=== PATIENT | female | born 1980 | race Caucasian/White ===

== ENCOUNTER → 2024-11-03 09:15 | Outpatient (BNV) | payer MEDICARE, SELFPAY | PROVIDERS: Visit Provider Psychiatry & Neurology Psychiatry | DX: F33.2 Major depressive disorder, recurrent severe without psychotic features (principal); F41.1 Generalized anxiety disorder; F43.10 Post-traumatic stress disorder, unspecified; F10.91 Alcohol use, unspecified, in remission | CPT/HCPCS: 90792 ==

== ENCOUNTER 2024-11-07 09:13 | Outpatient (REF) | payer MEDICARE, MEDICAID, SELFPAY ==
[2024-11-07 09:49] LABS: MANUAL DIFF FLAG NO
[2024-11-07 10:19] LABS: Basophils Absolute Auto 0.1 X10*3/uL (0.0-0.2); Basophils Percent Auto 0.8 % (0-2); Eosinophils Absolute Auto 0.1 X10*3/uL (0.0-0.4); Eosinophils Percent Auto 1.1 % (0-4); Hematocrit 33.1 % (37.0-47.0); Hemoglobin 10.3 g/dl (12.0-16.0); Imm Gran Abs Auto 0.04 X10*3/uL (0.00-0.03); Imm Gran Pct Auto 0.5 % (0.0-0.4); Lymphocytes Absolute Auto 1.8 X10*3/uL (1.2-4.9); Lymphocytes Percent Auto 23.4 % (20-40); Mean Corpuscular HGB Conc 31.1 g/dl (31.0-35.0); Mean Corpuscular Hemoglobin 22.8 pg (27.0-33.0); Mean Corpuscular Volume 73.4 fL (80.0-98.0); Mean Platelet Volume 9.7 fL (9.4-12.3); Monocytes Absolute Auto 0.6 X10*3/uL (0.1-1.2); Monocytes Percent Auto 7.6 % (2-11); Neutrophils Absolute Auto 5.1 x10*3/uL (2.0-8.3); Neutrophils Percent Auto 66.6 % (45-73); Platelet Count 317 X10*3/uL (160-400); Red Blood Count 4.51 X10*6/uL (4.20-5.50); Red Cell Distribution Width 14.8 % (11.0-16.0); White Blood Count 7.6 X10*3/uL (4.8-10.8)
[2024-11-07 10:24] LABS: Estimated Average Glucose 111 mg/dL; Hemoglobin A1c % 5.5 % (<6.0)
[2024-11-07 11:08] LABS: HBS Num1 0.91 mIU/mL (0-7.99); HBsAGNum1 0.28 S/CO (0.00-0.99); HIV AB/AG Nonreactive (Nonreactive); HIV Num 1 0.07 S/CO (0.00-0.99); Hepatitis B Core Antibody Nonreactive (Nonreactive); Hepatitis B Surface Antigen Negative (Negative); Syphilis Screen Nonreactive (Nonreactive); ~HepC Num1 0.17 S/CO (0.00-0.79); ~Hepatitis B Surface Antibody NONREACTIVE (Nonreactive); ~Hepatitis C Antibody Nonreactive (Nonreactive)
[2024-11-07 11:15] LABS: Folate 12.4 ng/mL (> or = 4.0); Vitamin B12 427 pg/mL (200-900)
[2024-11-07 12:01] LABS: UPreg QC Valid YES; Urine Pregnancy NEGATIVE (NEGATIVE)
[2024-11-07 12:07] LABS: Appearance Urine Clear; Color Urine Yellow; Glucose Urine UA Negative (Negative); Leukocyte Esterase Urine Negative (Negative); Nitrite Urine Negative (Negative); PH 5.5 (5.0-9.0); Specific Gravity - Urine 1.025 (1.005-1.025); Urine Blood Negative (Negative); Urine Ketones Trace mg/dL (Negative); Urine Protein Negative (Neg-Trace)
[2024-11-07 12:12] LABS: Alanine Aminotransferase 20 U/L (0-31); Alkaline Phosphatase 88 U/L (39-117); Anion Gap 12 (12-20); Aspartate Amino Transferase 19 U/L (5-31); Bilirubin Total 0.3 mg/dL (0.0-1.0); Blood Urea Nitrogen 14 mg/dL (9-16); C Reactive Protein 0.62 mg/dL (< or = 0.50); Calcium 9.2 mg/dL (8.4-10.2); Carbon Dioxide 25 mmol/L (22-29); Chloride 108 mmol/L (96-108); Cholesterol 127 mg/dL (<200); Estimated Glomerular Filt Rate > 60; Glucose Fasting 93 mg/dL (60-99); HDL Cholesterol 47 mg/dL (>40); Iron 17 mcg/dL (30-160); LDL Cholesterol Calculated 69 mg/dL (<100); Magnesium 1.8 mg/dL (1.6-2.6); Percent Iron Saturation 5 % (15-50); Phosphorus 3.6 mg/dL (2.7-4.5); Potassium 4.7 mmol/L (3.3-5.1); Sodium 140 mmol/L (135-145); Total Iron Binding Capacity 363 mcg/dL (228-428); Total Protein 7.1 g/dL (6.5-8.0); Triglycerides 57 mg/dL (<150); Unsaturated Iron Binding 346 ug/dL
[2024-11-07 12:21] LABS: Ferritin 3 ng/mL (10-250); Free T4 (Free Thyroxine) 1.75 ng/dL (0.71-1.85); Thyroid Stimulating Hormone 0.01 uIU/mL (0.32-4.0); Vitamin D 25-OH Total 31.3 ng/mL (>30)
[2024-11-07 12:37] LABS: Gamma Glutamyl Transpeptidase 14 U/L (7-33)
[2024-11-08 17:32] LABS: Homocysteine 9.9 umol/L (<10.4)
[2024-11-10 13:29] LABS: Methylmalonic Acid 122 nmol/L (55-335)
[2024-11-14 05:49] LABS: Vitamin B1 8 nmol/L (8-30)
== END 2024-11-07 09:14 | disposition home or self-care (01) ==
LOC: HO.LAB 09:13
PROVIDERS: Absent Provider Psychiatry & Neurology Psychiatry
DX: F39 Unspecified mood [affective] disorder (principal); F10.10 Alcohol abuse, uncomplicated; Z13.1 Encounter for screening for diabetes mellitus; Z13.6 Encounter for screening for cardiovascular disorders
CPT/HCPCS: 36415; 80053; 80061; 81003; 81025; 82306; 82607; 82728; 82746; 82977; 83036; 83090; 83540; 83735; 83921; 83970; 84100; 84425; 84439; 84443; 85025; 86140; 86704; 86706; 86780; 86803; 87340; 87389

== ENCOUNTER 2024-11-17 10:15 | Outpatient (RCR) | payer MEDICARE, SELFPAY ==
[2024-11-03 10:11] VITALS: BMI 30.3
[2024-11-03 10:13] VITALS: BP 114/68; PULSE 64; TEMP 36.8
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
--- NOTE | 2024-11-03 15:30 | HO.PHP ---
Pt's case has been opened and reviewed in team.
--- NOTE | 2024-11-03 16:21 | PC.ADMIT ---
Patient is a 43 year old single female who was referred to [facility] by Talita Echavarria secondary to depression and anxiety. Patient has a history of heavy alcohol use and at her worst point she was drinking daily throughout the day. She reports history of alcohol induced pancreatitis. She reports sobriety from alcohol since June 2023 and is on MAT with Naltrexone which she receives from Talita Ecahvarria. Patient reports she would like to cut down her use of Marijuana as she is using 25 mg marijuana gummy three days a week. Patient reports that DCF took her daughter recently. Patient stated, They (DCF) took my 15 year old daughter 3 weeks ago she was getting sick and not going to school . 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 Patient reports she has to go to court this Thursday11/04/24 thus will not be attending PHP that day. Patient reports having 6 children all of whom are not in her custody. She stated she sees them once a week and misses them daily. She hopes to get her children back living with her. Patient reports she sometimes stays at her ex's house [place] and her Aunts home. She also reports that they are all supportive along with the inclusion of her best friend Leigh. Patient is alert and oriented x4. She is calm and cooperative. She presented with anxious mood and affect. She denied SI, no HI. She was given a copy of her safety plan if needed. Medications reconciled with patient and patient's pharmacy.
[2024-11-04 14:17] LABS: Amphetamine Screen Urine POSITIVE (Not Detect); Barbiturates, Urine Not Detected (Not Detect); Benzodiazepines Screen Urine Not Detected (Not Detect); Buprenorphine Scr Not Detected (Not Detect); Cannabinoid Screen Urine POSITIVE (Not Detect); Cocaine Screen Urine Not Detected (Not Detect); Fentanyl, urine Not Detected (Not Detect); Methadone Screen, Urine Not Detected (Not Detect); Opiate Screen Urine Not Detected (Not Detect); Oxycodone Screen Urine Not Detected (Not Detect); Phencyclidine Screen Urine Not Detected (Not Detect)
--- NOTE | 2024-11-10 12:24 | PC.NURSE ---
Reviewed lab results with Dr. Delgado including Iron 17, saturation 5, Ferritin 3, CRP 0.62, TSH 0.01, HGB 10.3, HCT 33.1, MCV 73.4, MCH 22.8, IMGRAN 0.5, IMGRAN ABS 0.04. No new orders.
--- NOTE | 2024-11-11 11:07 | HO.PHP ---
This ticket writer met with Marina after group 1 in which she was doing much advice given and you should vs. I statements. This ticket writer explained there are ways she can describe experiences for herself without suggesting what others should do going forward. This appeared receptive. Marina shared that now she knows her daughter is in good hands, she is feeling good and has a lot of motivation. She relayed she wants to be a trauma therapist in the future. This ticket writer brought up how her goal in community meeting was based on focusing on herself and small goals she could set for herself. This ticket writer stated that bringing her attention to I statements can better help her focus on herself. This appeared receptive, and Marina welcomed feedback like this in the future.
--- NOTE | 2024-11-14 20:23 | HO.PHPPROGNO ---
Subjective Subjective Date of Service: 11/14/24 Reason For Visit: MDD Interim History: Patient seen for follow-up. ? things have been good?. Patient reports she is ?doing better? managing her interactions with DCF she has been to court in the interim she is advocating to get her children back she is she is quite angry at her predicament her kids her children continue to struggle with the grief of the loss of their father and feels that it has been to the detriment that she has not been able to comfort her kids. One of her sons has reportedly regressed and she is eager to get him at least over 2 her ex and out f the hands of DCF she anticipates court in November and is staying organized and focused. She appears to be emotionally stable behaviors well regulated especially considering her frustrations she updates process description writer on number of developments and says her focus is to ?need to put myself 1st? sleep appetite and energy are stable denies any hopelessness helplessness or SI. No changes in her health and is utilizing resources appropriately. She continues on duloxetine 90 mg as well as propranolol. She has access to lorazepam if needed and although she has not taken this medication so far she feels better having access to it and has not taken it in the past and was well tolerated. Get whether Medication Compliance: Yes Side effects from medications: No Attending Groups: Yes Review of Systems Acute medical concerns: No Mental Status Exam Mental Status Exam Narrative: Alert, oriented, in no acute distress. Calm, cooperative, engaged. No psychomotor agitation or neurovegetative retardation. Eye contact maintained. Mood depressed, affect constricted. Speech normal. Thought process linear, coherent. Thought content related to stressors, transient hopelessness, denies SI or HI. No paranoia or delusional content elicited. No evidence of psychosis. Insight and judgment - fair but adequate. Diagnostics Vital Signs (24Hr): BMI result Body Mass Index 30.3 Assessment & Plan Assessment & Plan (1) MDD (major depressive disorder), recurrent severe, without psychosis: Status: Acute Code(s): F33.2 - Major depressive disorder, recurrent severe without psychotic features (2) ANTHONY (generalized anxiety disorder): Status: Acute Code(s): F41.1 - Generalized anxiety disorder (3) Post traumatic stress disorder (PTSD): Status: Acute Code(s): F43.10 - Post-traumatic stress disorder, unspecified (4) Alcohol use disorder in remission: Status: Acute Code(s): F10.91 - Alcohol use, unspecified, in remission Plan Continue PHP continue propranolol 10 mg BID (before 5pm) continue duloxetine 90 mg qd continue lorazepam 0.5 mg [address]N [address] court, DCF, legal (underutilized) continue other regular medications? Routine lab work ordered as indicated EKG, routine for baseline QTc for medication considerations as indicated UDS as indicated Continue to monitor Patient educated on: diagnosis, medication risk/benefits and substance abuse Informed Consent: understands Reason for contiued partial hosp. stay Substantial Risk for: med/psych decompensation Certification I certify that partial hospital treatment is medically necessary due to the symptoms and problems resulting from the patient's mental illness and the failure to treat the patient at the partial hospital level of care would likely result in the patient requiring inpatient psychiatric care which could not be prevented at a less intensive level of care. Total time managing care of this patient today __30__ minutes. Discharge Plan Discharge Attending provider: Vibha Delgado Medications: New lorazepam 0.5 mg tablet 0.5 - 1 mg PO DAILY PRN (Reason: anxiety) Qty: 8 0RF duloxetine 60 mg capsule,delayed release(DR/EC) 60 mg PO DAILY Qty: 30 0RF Continued naltrexone 50 mg Tablet 25 mg PO DAILY Rx Instructions: Patient takes 1/2 a tab daily. propranolol 10 mg tablet 10 mg PO BID Qty: 20 0RF Rx Instructions: take before 5pm prazosin 2 mg Capsule 2 mg PO BEDTIME Qty: 30 0RF Changed quetiapine [Seroquel] 200 mg Tablet 200 mg PO BEDTIME PRN (Reason: Sleep) Qty: 30 0RF duloxetine 30 mg Capsule,Delayed Release(Dr/Ec) 30 mg PO DAILY Qty: 30 0RF Discontinued clonidine HCl 0.1 mg Tablet 0.1 mg PO DAILY Stand Alone Forms: Patient Portal Discharge page Print Language: Greek
--- NOTE | 2024-11-17 10:11 | HO.PHP ---
Marina informed food writer today that she has not been able to contact her therapist for a follow-up appt. States she left several messages but has not been contacted by Dr. Tiffanie Cobian or her office. Marina is scheduled to discharge today 11/17/24 therefore a SONALI was obtained by Marina for [facility] and a referral for a new OP therapist was faxed. Marina was informed that she will be contacted directly by [facility] with her intake appt, and was encouraged call [facility] within the next week if she has not received a phone call. Pt agreed.
--- NOTE | 2024-11-17 11:31 | P.PNPSP_ITS ---
Subjective Subjective Date of Service: 11/17/24 Reason For Visit: MDD Diagnostics Vital Signs (24Hr): BMI result Body Mass Index 30.3 Assessment & Plan Certification I certify that partial hospital treatment is medically necessary due to the symptoms and problems resulting from the patient's mental illness and the failure to treat the patient at the partial hospital level of care would likely result in the patient requiring inpatient psychiatric care which could not be prevented at a less intensive level of care. Total time managing care of this patient today ____ minutes. Discharge Plan Discharge Attending provider: Vibha Delgado Medications: New lorazepam 0.5 mg tablet 0.5 - 1 mg PO DAILY PRN (Reason: anxiety) Qty: 8 0RF duloxetine 60 mg capsule,delayed release(DR/EC) 60 mg PO DAILY Qty: 30 0RF ferrous sulfate [Iron (ferrous sulfate)] 325 mg (65 mg iron) tablet 325 mg PO DAILY Qty: 30 0RF Continued naltrexone 50 mg Tablet 25 mg PO DAILY Rx Instructions: Patient takes 1/2 a tab daily. propranolol 10 mg tablet 10 mg PO BID Qty: 20 0RF Rx Instructions: take before 5pm prazosin 2 mg Capsule 2 mg PO BEDTIME Qty: 30 0RF Changed quetiapine [Seroquel] 200 mg Tablet 200 mg PO BEDTIME PRN (Reason: Sleep) Qty: 30 0RF duloxetine 30 mg Capsule,Delayed Release(Dr/Ec) 30 mg PO DAILY Qty: 30 0RF Discontinued clonidine HCl 0.1 mg Tablet 0.1 mg PO DAILY Stand Alone Forms: Patient Portal Discharge page Patient Education: Depression (DC), Hyperthyroidism (ED), Anemia (DC), Anxiety (ED) Print Language: Indonesian
--- NOTE | 2024-11-17 12:34 | HO.PHP ---
Marina's new OP therapy appt with [facility] was received today and provided to Marina before discharge. The appt is as follows: 1:00 AM - 12:00 PM [facility] Adult Comprehensive Assessment?IN PERSON? Prog: Outpatient Site:[address] [place] [address] Staff: Braden Rand
== END 2024-11-17 23:59 | disposition home or self-care (01) ==
LOC: HO.PHPA 10:15
PROVIDERS: Visit Provider Psychiatry & Neurology Psychiatry
DX: F33.2 Major depressive disorder, recurrent severe without psychotic features (principal); F41.1 Generalized anxiety disorder; F43.10 Post-traumatic stress disorder, unspecified; F10.91 Alcohol use, unspecified, in remission; Z79.899 Other long term (current) drug therapy
CPT/HCPCS: 80307; 90791; 90853

== ENCOUNTER 2024-11-17 13:24 | Emergency (ER) | payer MEDICARE, MEDICAID, SELFPAY ==
[2024-11-17 13:31] VITALS: BP 144/72; PULSE 83; RESP 20; TEMP 37.1; O2SAT 98; BMI 29.4
--- NOTE | 2024-11-17 13:50 | ECG_ITS ---
Test Reason : CHEST PAIN Blood Pressure : */* mmHG Vent. Rate : 77 BPM Atrial Rate : 77 BPM P-R Int : 122 ms QRS Dur : 78 ms QT Int : 386 ms P-R-T Axes : 31 38 27 degrees QTcB Int : 436 ms Normal sinus rhythm Normal ECG No previous ECGs available Referred By: Suyapa Blackwell Electronically Signed By: ANGELIA SMITH
--- NOTE | 2024-11-17 13:50 | ED.GENADULT ---
HPI - General Adult General Chief complaint: General Medical Stated complaint: abnormal labs Related Data Home Medications ?Medication ?Instructions ?Recorded ?Confirmed naltrexone 50 mg tablet 25 mg PO DAILY 11/04/24 11/04/24 Previous Rx's ?Medication ?Instructions ?Recorded lorazepam 0.5 mg tablet 0.5 - 1 mg (1 - 2 x 0.5 mg) PO 11/03/24 DAILY PRN anxiety #8 tabs propranolol 10 mg tablet 10 mg PO BID #20 tabs 11/04/24 quetiapine 200 mg tablet (Seroquel) 200 mg PO BEDTIME PRN Sleep #30 11/04/24 tabs duloxetine 30 mg capsule,delayed 30 mg PO DAILY #30 caps 11/14/24 release duloxetine 60 mg capsule,delayed 60 mg PO DAILY #30 caps 11/14/24 release prazosin 2 mg capsule 2 mg PO BEDTIME #30 caps 11/14/24 ferrous sulfate 325 mg (65 mg 325 mg PO DAILY #30 tabs 11/17/24 iron) tablet (Iron (ferrous sulfate)) Allergies Allergy/AdvReac Type Severity Reaction Status Date / Time bupropion [From Wellbutrin] Allergy Panic Verified 11/17/24 13:36 attacks, Irritability, Anger severe. Penicillins [PCN] Allergy Hives Verified 11/17/24 13:36 divalproex sodium AdvReac Sedation. Verified 11/17/24 13:36 [From Depakote] [facility] Past Medical History Medical History (Updated 11/21/24 @ 17:33 by Suyapa Blackwell NP) Pancreatitis delivery delivered Asthma Anemia Diverticulitis GERD (gastroesophageal reflux disease) Surgical History (Updated 11/03/24 @ 16:07 by Sarita Hopkins RN) H/O tubal ligation History of cholecystectomy Social History Social History Household Members: None Patient Tobacco Use Status: Former Tobacco user Advance Directives: No Advance Directives Information Provided: No Do you have a plan to hurt others: No Plan Physical Exam ED Vital Signs: Vital Signs - 24 hr 11/17/24 13:31 Temperature 98.8 F Pulse Rate 83 Respiratory Rate 20 Blood Pressure 144/72 H Pulse Oximetry 98 Oxygen Delivery Method Room Air BMI result Body Mass Index 29.4 Course Course Course Narrative: This is a rapid medical exam performed by Julio Cesar Blackwell NP: Additional HPI, ROS, PE not included below will be deferred to primary provider. 11/17/24 13:51 Patient is a 43-year-old female referred to the emergy department by her psychiatrist for complaint of palpitations and rectal bleeding. Patient reports rectal bleeding has been for the past year. Has been diagnosed with internal hemorrhoids. Psychiatrist called expect, notes H and H was 10.3/33, TSH 0.1. Plan: labs, EKG Medical Decision Making Lab Data 11/17/24 14:13 11/17/24 14:13 Labs: Lab Results 11/17/24 Range/Units 14:13 WBC 7.0 (4.8-10.8) X10*3/uL RBC 4.50 (4.20-5.50) X10*6/uL Hgb 10.4 L (12.0-16.0) g/dl Hct 32.4 L (37.0-47.0) % MCV 72.0 L (80.0-98.0) fL MCH 23.1 L (27.0-33.0) pg MCHC 32.1 (31.0-35.0) g/dl RDW 15.2 (11.0-16.0) % Plt Count 286 (160-400) X10*3/uL MPV 9.6 (9.4-12.3) fL Immature Gran % (Auto) 0.3 (0.0-0.4) % Neut % (Auto) 57.6 (45-73) % Lymph % (Auto) 27.6 (20-40) % [place] % (Auto) 11.1 H (2-11) % Eos % (Auto) 2.4 (0-4) % Baso % (Auto) 1.0 (0-2) % Lymph # (Auto) 1.9 (1.2-4.9) X10*3/uL [place] # (Auto) 0.8 (0.1-1.2) X10*3/uL Eos # (Auto) 0.2 (0.0-0.4) X10*3/uL Baso # (Auto) 0.1 (0.0-0.2) X10*3/uL Abs Immat Gran (auto) 0.02 (0.00-0.03) X10*3/uL Absolute Neuts (auto) 4.0 (2.0-8.3) x10*3/uL Absolute Nucleated RBC 0.000 (0.0-0.012) X10*3/uL Nucleated RBC % (auto) 0.0 (0.0-0.2) /100WBC Sodium 141 (135-145) mmol/L Potassium 3.8 (3.3-5.1) mmol/L Chloride 109 H (96-108) mmol/L Carbon Dioxide 26 (22-29) mmol/L Anion Gap 10 L (12-20) BUN 15 (9-16) mg/dL Creatinine 0.61 (0.5-1.4) mg/dL Estim Creat Clear Calc 100.3 Estimated GFR > 60 Random Glucose 107 (60-115) mg/dL Calcium 9.5 (8.4-10.2) mg/dL Magnesium 2.0 (1.6-2.6) mg/dL Total Bilirubin 0.2 (0.0-1.0) mg/dL AST 30 (5-31) U/L ALT 21 (0-31) U/L Alkaline Phosphatase 85 (39-117) U/L Total Protein 7.2 (6.5-8.0) g/dL Albumin 4.0 (3.5-5.0) g/dL TSH 0.01 L (0.32-4.0) uIU/mL Free T4 1.90 H (0.71-1.85) ng/dL Discharge Plan Discharge Clinical Impression: Rectal bleeding Patient Disposition: Left W/O Completing Treatment Prescriptions: No Action lorazepam 0.5 mg tablet 0.5 - 1 mg PO DAILY PRN (Reason: anxiety) Qty: 8 0RF naltrexone 50 mg Tablet 25 mg PO DAILY Rx Instructions: Patient takes 1/2 a tab daily. quetiapine [Seroquel] 200 mg Tablet 200 mg PO BEDTIME PRN (Reason: Sleep) Qty: 30 0RF propranolol 10 mg tablet 10 mg PO BID Qty: 20 0RF Rx Instructions: take before 5pm duloxetine 60 mg capsule,delayed release(DR/EC) 60 mg PO DAILY Qty: 30 0RF duloxetine 30 mg Capsule,Delayed Release(Dr/Ec) 30 mg PO DAILY Qty: 30 0RF prazosin 2 mg Capsule 2 mg PO BEDTIME Qty: 30 0RF ferrous sulfate [Iron (ferrous sulfate)] 325 mg (65 mg iron) tablet 325 mg PO DAILY Qty: 30 0RF Discharge Date/Time: 11/17/24 20:28
[2024-11-17 14:17] LABS: MANUAL DIFF FLAG NO
[2024-11-17 14:19] LABS: Basophils Absolute Auto 0.1 X10*3/uL (0.0-0.2); Eosinophils Absolute Auto 0.2 X10*3/uL (0.0-0.4); Eosinophils Percent Auto 2.4 % (0-4); Hematocrit 32.4 % (37.0-47.0); Hemoglobin 10.4 g/dl (12.0-16.0); Imm Gran Abs Auto 0.02 X10*3/uL (0.00-0.03); Imm Gran Pct Auto 0.3 % (0.0-0.4); Lymphocytes Absolute Auto 1.9 X10*3/uL (1.2-4.9); Lymphocytes Percent Auto 27.6 % (20-40); Mean Corpuscular HGB Conc 32.1 g/dl (31.0-35.0); Mean Corpuscular Hemoglobin 23.1 pg (27.0-33.0); Mean Platelet Volume 9.6 fL (9.4-12.3); Monocytes Absolute Auto 0.8 X10*3/uL (0.1-1.2); Monocytes Percent Auto 11.1 % (2-11); Neutrophils Percent Auto 57.6 % (45-73); Platelet Count 286 X10*3/uL (160-400); Red Cell Distribution Width 15.2 % (11.0-16.0)
[2024-11-17 14:38] LABS: Alanine Aminotransferase 21 U/L (0-31); Alkaline Phosphatase 85 U/L (39-117); Anion Gap 10 (12-20); Aspartate Amino Transferase 30 U/L (5-31); Bilirubin Total 0.2 mg/dL (0.0-1.0); Blood Urea Nitrogen 15 mg/dL (9-16); Calcium 9.5 mg/dL (8.4-10.2); Carbon Dioxide 26 mmol/L (22-29); Chloride 109 mmol/L (96-108); Creatinine Clr Calc Pharmacy 100.3; Estimated Glomerular Filt Rate > 60; Glucose Random 107 mg/dL (60-115); Potassium 3.8 mmol/L (3.3-5.1); Sodium 141 mmol/L (135-145); Total Protein 7.2 g/dL (6.5-8.0)
[2024-11-17 14:59] LABS: TSH reflex Free T4 0.01 uIU/mL (0.32-4.0)
[2024-11-17 18:45] VITALS: BP 140/81; PULSE 77; RESP 18; TEMP 36.6; O2SAT 99
== END 2024-11-17 20:28 | disposition left against medical advice (07) ==
PROVIDERS: Registered Nurse Emergency; Emergency Provider Emergency Medicine
DX: K62.5 Hemorrhage of anus and rectum (principal); R00.2 Palpitations; Z79.899 Other long term (current) drug therapy
CPT/HCPCS: 36415; 80053; 83735; 84439; 84443; 85025; 93005; 99283

== ENCOUNTER → 2024-11-17 13:50 | Outpatient (BNV) | payer MEDICARE, MEDICAID, SELFPAY | PROVIDERS: Emergency Provider Emergency Medicine; Visit Provider Internal Medicine | DX: R07.9 Chest pain, unspecified (principal) | CPT/HCPCS: 93010 ==